=== PATIENT | male | born 1970 | race Caucasian/White ===

== ENCOUNTER 2021-04-19 06:16 | Day surgery (SDC) | payer OTHER ==
[~2021-04-19] VITALS: Ht 172.7 cm; Wt 93.0 kg
[2021-04-19] MEDS ORDERED: LIDOCAINE 2% 1000 MG/50 ML VIAL INJ ONE (08:08)
== END 2021-04-19 09:36 | disposition home or self-care (01) ==
LOC: MDS 06:16 → MMU 06:17 → MDS 09:36
PROVIDERS: ATTEND Internal Medicine Gastroenterology
DX: K75.81 Nonalcoholic steatohepatitis (NASH) (principal); E66.9 Obesity, unspecified; Z68.31 Body mass index [BMI] 31.0-31.9, adult; Z20.822 Contact with and (suspected) exposure to COVID-19
CPT/HCPCS: 47000; 87426; J2001